=== PATIENT | female | born 1970 | race Caucasian/White ===

== ENCOUNTER 2016-11-22 12:15 | Emergency (ER) | payer BC ==
[~2016-11-22] VITALS: Ht 162.6 cm; Wt 72.8 kg
[2016-11-22 13:09] LABS: HEMATOCRIT 43.7 % (36.0-46.0); MCH 31.5 PG (29.0-34.0); MCV 90.1 FL (83-99); MEAN PLAT.VOLUME 10.4 uM^3 (9.5-12.4); PLATELET COUNT 270 K/uL (156-360); RBC DIS.WIDTH-SD 39.2 % (39-53); RED BLOOD COUNT 4.85 M/uL (3.80-5.20); WHITE BLOOD COUNT 11.5 K/uL (4.1-10.2)
[2016-11-22 13:21] LABS: CHLORIDE 109 mEq/L (99-109); POTASSIUM 4.9 mEq/L (3.7-5.4); SODIUM 139 mEq/L (136-147)
[2016-11-22 13:23] LABS: GLUCOSE 96 mg/dL (70-99)
[2016-11-22 13:24] LABS: ANION GAP 6 MEQ/L (2-14)
[2016-11-22 13:27] LABS: GFR ESTIMATE (CALCULATED) > 59 mL/min/
[2016-11-22 13:28] LABS: UREA NITROGEN (BUN) 9 mg/dL (9-23)
[2016-11-22 13:31] LABS: TROP-I INTERPRETATION NEGATIVE; TROPONIN-I < 0.01 ng/mL (0.0-0.30)
[2016-11-22] MEDS ORDERED: FUTURO RESTORI1 EACH MC (18:31)
[2016-11-22 18:44] VITALS: BP 132/80
== END 2016-11-22 18:50 | disposition home or self-care (01) ==
LOC: EXP 12:15 → EME 12:15 → EXP 18:50
DX: R07.9 Chest pain, unspecified (principal); M79.89 Other specified soft tissue disorders; F17.200 Nicotine dependence, unspecified, uncomplicated
CPT/HCPCS: 71020; 80048; 83880; 84439; 84443; 84484; 85027; 93005; 99281; 99284